=== PATIENT | male | born 1995 | race Native Hawaiian/Other Pacific Islander ===

== ENCOUNTER 2023-06-23 23:48 | Outpatient (CLI) | payer OTHER, SELFPAY | END 2023-06-23 23:49 | disposition home or self-care (01) | LOC: AMB 06-25 10:29 | PROVIDERS: Visit Provider Family Medicine | DX: R45.851 Suicidal ideations (principal) | CPT/HCPCS: A0998 ==

== ENCOUNTER 2023-06-24 00:14 | Emergency (ER) | payer OTHER, SELFPAY ==
[2023-06-24 00:20] VITALS: BP 123/91; PULSE 104; RESP 16; TEMP 36.5; O2SAT 94; BMI 25.8
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
== END 2023-06-24 01:29 ==
LOC: ED 01:20
PROVIDERS: Emergency Provider Family Medicine
DX: Z02.89 Encounter for other administrative examinations (principal)
CPT/HCPCS: 99283